=== PATIENT | female | born 1970 | race Caucasian/White ===

== ENCOUNTER 2023-06-15 11:39 | Outpatient (CLI) | payer OTHER, SELFPAY ==
--- NOTE | 2023-06-15 13:14 | W.ANESCHARGE ---
Anesthesia Charges Start Date/Time Anesthesia Start Date: 06/15/23 Anesthesia Start Time: 12:47 Stop Date/Time Anesthesia Stop Date: 06/15/23 Anesthesia Stop Time: 13:09
== END 2023-06-15 11:40 | disposition home or self-care (01) ==
LOC: OP CLINIC 11:40
PROVIDERS: PCP Nurse Practitioner Family; Visit Provider Surgery
DX: Z87.19 Personal history of other diseases of the digestive system (principal)
CPT/HCPCS: 43239; 731; 88305; J2704; J3490